=== PATIENT | female | born 1990 | race Caucasian/White ===

== ENCOUNTER 2020-11-15 21:25 | Inpatient (IN) ==
[2020-11-15] MEDS ORDERED: BUTORPHANOL 2 MG/ML VIAL IV PRN (21:40)
[2020-11-15] MEDS ORDERED: MEPERIDINE 50 MG/1 ML VIAL IV PRN (21:40)
[2020-11-15] MEDS ORDERED: ONDANSETRON 4 MG/2 ML VIAL IV PRN (21:40)
[2020-11-15 21:59] LABS: Basophils # 0.1 10*3/uL (0.0-0.2); Basophils % 0.4 % (0.0-0.8); Eosinophils # 0.2 10*3/uL (0.0-0.87); Eosinophils % 1.6 % (0.00-10.9); Hematocrit 36.3 VOL% (35.7-47.0); Hemoglobin 11.9 GM/DL (12.0-16.0); Immature Granulocytes % 0.3 %; Immature Granulocytes Absolute 0.04 #; Lymphocytes # 3.7 10*3/uL (1.4-4.0); Lymphocytes % 26.4 % (21.3-54.2); Mean Corpuscular HGB Conc 32.8 GM/DL (32-36); Mean Platelet Volume 10.9 FL (9.6-12.0); Monocytes % 8.3 % (1.7-12.7); Platelet Count 304 T/CUMM (130-400); Red Blood Count 4.27 MC/CUMM (3.8-5.5); Red Cell Distribution Width 13.2 % (9.3-17.3); White Blood Count 14.2 T/CUMM (4-12)
[2020-11-15 22:18] LABS: Alanine Aminotransferase 13 U/L (13-56); Albumin 2.7 G/DL (3.4-5.0); Alkaline Phosphatase 142 U/L (45-117); Aspartate Amino Transferase 11 U/L (0-37); Bilirubin,Total < 0.39 MG/DL (0.2-1.0); Blood Urea Nitrogen 13 MG/DL (7-18); Calcium 8.4 MG/DL (8.5-10.1); Carbon Dioxide 22 MMOL/L (21-32); Estimated Glom Filtration Rate 113 ML/MIN; Glucose 90 MG/DL (74-106); Osmolality,Calculated 272.8 MOS/KG (273-304); Potassium 3.9 MMOL/L (3.5-5.1); Sodium 137 MMOL/L (136-145); Total Protein 7.2 G/DL (6.4-8.2)
[2020-11-15 22:29] LABS: INR 0.9; PT Patient Result 10.4 SECS (10.5-12.0); Partial Thromboplastin Time 24.1 SECS (23.9-33.8)
[2020-11-15 22:30] LABS: Bilirubin,Direct 0.1 MG/DL (0.0-0.20); Uric Acid 6.2 MG/DL (2.6-6.0)
[2020-11-16] MEDS: LACTATED RINGERS 1,000 ML IV SCH (05:50)
[2020-11-16] MEDS: OXYTOCIN/LR 20 UNIT/1,000 ML BAG IV SCH (05:50)
[2020-11-16] MEDS ORDERED: LACTATED RINGERS 1,000 ML IV ONE (06:33)
[2020-11-16] MEDS ORDERED: ePHEDrine 50 MG/ML VIAL IV PRN (06:33)
[2020-11-16] MEDS ORDERED: FAMOTIDINE 20 MG/2 ML VIAL IV ONE (06:33)
[2020-11-16] MEDS ORDERED: PROMETHAZINE 25 MG/1 ML VIAL IM ONE (06:33)
[2020-11-16] MEDS ORDERED: ONDANSETRON 4 MG/2 ML VIAL IV ONE (06:33)
[2020-11-16] MEDS ORDERED: NALOXONE 0.4 MG/ML VIAL IV PRN (06:33)
[2020-11-16] MEDS ORDERED: hydrOXYzine HCL 25 MG/1 ML VIAL IM PRN (06:33)
[2020-11-16] MEDS ORDERED: diphenhydrAMINE 50 MG/1 ML VIAL IV PRN ×2 (06:33)
[2020-11-16] MEDS ORDERED: CITRIC ACID/SODIUM CITRATE 30 ML UDCUP PO ONE (06:33)
[2020-11-16] MEDS ORDERED: LACTATED RINGERS 1,000 ML IV SCH ×2 (07:00)
[2020-11-16] MEDS: fentaNYL 2 MCG/ROPIV 0.2% EPID 100 ML EPIDURAL SCH (09:32)
[2020-11-16 10:55] LABS: Bilirubin,Urine Negative (Negative); Blood, Urine Negative (Negative); Glucose,Urine (UA) Negative (Negative); Ketones,Urine 5 mg/dL (Negative); Mucus,Urine Occasional /LPF (Occasional); Nitrite,Urine Negative (Negative); Protein,Urine Negative; RBC,Urine <1 /HPF (0-4); Urine Appearance CLEAR (Clear); Urine Color Yellow (Yellow); Urine Specific Gravity 1.013 (1.001-1.035); Urine Urobilinogen < 2.0 EU/DL (0.2-1.0)
[2020-11-16 11:12] LABS: Protein/Creatinine Ratio,Urine 0.2 RATIO
[2020-11-16] MEDS ORDERED: miSOPROStoL 200 MCG TABLET ONE (12:32)
[2020-11-16] MEDS ORDERED: CARBOPROST TROMETHAMINE 250 MCG/ML AMP IM ONE (12:32)
[2020-11-16 14:11] LABS: Cord Arterial Blood HCO3 23.9 MMOL/L
[2020-11-16 14:12] LABS: Cord Venous Blood HCO3 21.4 MMOL/L; Cord Venous Blood PCO2 43.4 MMHG; Cord Venous Blood PO2 28.7
[2020-11-16] MEDS ORDERED: oxyCODONE/ACETAMINOPHEN 5-325 MG TABLET PO PRN ×2 (19:13)
[2020-11-16] MEDS: IBUPROFEN 800 MG TABLET PO PRN (21:15)
[2020-11-16] MEDS: LABETALOL 100 MG TABLET PO SCH (21:15)
[2020-11-16] MEDS ORDERED: DOCUSATE SODIUM 100 MG CAPSULE PO SCH (21:30)
[2020-11-17 05:16] LABS: Basophils # 0.1 10*3/uL (0.0-0.2); Basophils % 0.4 % (0.0-0.8); Eosinophils # 0.2 10*3/uL (0.0-0.87); Eosinophils % 1.6 % (0.00-10.9); Hematocrit 36.6 VOL% (35.7-47.0); Hemoglobin 11.6 GM/DL (12.0-16.0); Immature Granulocytes % 0.4 %; Immature Granulocytes Absolute 0.06 #; Lymphocytes # 4.7 10*3/uL (1.4-4.0); Lymphocytes % 30.8 % (21.3-54.2); Mean Corpuscular HGB Conc 31.7 GM/DL (32-36); Monocytes % 8.1 % (1.7-12.7); Neutrophils % 58.7 % (38.7-73.9); Platelet Count 235 T/CUMM (130-400); Red Blood Count 4.16 MC/CUMM (3.8-5.5); Red Cell Distribution Width 13.2 % (9.3-17.3); White Blood Count 15.2 T/CUMM (4-12)
[2020-11-17] MEDS ORDERED: MEASLES/MUMPS/RUBELLA VACCINE 0.5 ML VIAL SUBCUT ONE (06:34)
[2020-11-17] MEDS ORDERED: DIPH/TET/ACEL PERT BOOSTER VACCINE 0.5 ML VIAL IM ONE (06:34)
[2020-11-17] MEDS ORDERED: BENZOCAINE 20%/MENTHOL 0.5% SPRAY 56 GM CAN TOP PRN (06:34)
[2020-11-17] MEDS ORDERED: HYDROCORTISONE 2.5% RECTAL CREAM 30 GM TUBE TOP PRN (06:34)
[2020-11-17] MEDS ORDERED: BISACODYL 10 MG SUPP RECTAL PRN (06:34)
[2020-11-17] MEDS ORDERED: oxyCODONE/ACETAMINOPHEN 5-325 MG TABLET PO PRN ×2 (06:34)
[2020-11-17] MEDS ORDERED: RHO(D) IMMUNE GLOBULIN 300 MCG SYRINGE IM ONE (06:34)
[2020-11-17] MEDS ORDERED: WITCH HAZEL PADS 100/JAR TOP PRN (06:34)
[2020-11-17] MEDS ORDERED: IBUPROFEN 800 MG TABLET PO PRN (06:34)
[2020-11-17] MEDS ORDERED: OXYTOCIN/LR 20 UNIT/1,000 ML BAG IV ONE (06:34)
[2020-11-17] MEDS ORDERED: ACETAMINOPHEN 325 MG TABLET PO PRN (06:34)
[2020-11-17] MEDS ORDERED: ONDANSETRON 4 MG/2 ML VIAL IV PRN (06:34)
[2020-11-17] MEDS ORDERED: LANOLIN 50% CREAM 0.3 OZ TUBE TOP PRN (06:34)
[2020-11-17] MEDS ORDERED: [UNRECOGNIZED DRUG - OTHER] SCH (07:16)
[2020-11-17] MEDS ORDERED: IRON SCH (07:16)
[2020-11-17] MEDS ORDERED: PNV IRON FOLIC ACID OMEGA3 SCH (07:16)
[2020-11-17] MEDS: DOCUSATE SODIUM 100 MG CAPSULE PO SCH ×2 (08:25→21:08)
[2020-11-17] MEDS: MULTIVITAMIN (PRENATAL) TABLET PO SCH (08:25)
[2020-11-17] MEDS: LABETALOL 100 MG TABLET PO SCH ×3 (08:26→21:08)
[2020-11-17] MEDS ORDERED: LABETALOL 100 MG PO SCH (09:00)
[2020-11-17] MEDS: OXYTOCIN/LR 20 UNIT/1,000 ML BAG IV SCH (13:00)
[2020-11-17] MEDS: fentaNYL 2 MCG/ROPIV 0.2% EPID 100 ML EPIDURAL SCH ×2 (13:00→13:04)
[2020-11-17] MEDS: LACTATED RINGERS 1,000 ML IV SCH ×2 (13:01→13:02)
[2020-11-17] MEDS: IBUPROFEN 800 MG TABLET PO PRN (17:17)
[2020-11-18 05:42] LABS: Basophils # 0.1 10*3/uL (0.0-0.2); Basophils % 0.6 % (0.0-0.8); Eosinophils # 0.6 10*3/uL (0.0-0.87); Hematocrit 36.4 VOL% (35.7-47.0); Hemoglobin 11.6 GM/DL (12.0-16.0); Immature Granulocytes % 0.4 %; Immature Granulocytes Absolute 0.05 #; Lymphocytes # 5.4 10*3/uL (1.4-4.0); Lymphocytes % 42.4 % (21.3-54.2); Mean Corpuscular HGB Conc 31.9 GM/DL (32-36); Mean Corpuscular Volume 88.8 FL (87-102); Monocytes % 7.2 % (1.7-12.7); Neutrophils % 44.4 % (38.7-73.9); Platelet Count 279 T/CUMM (130-400); Red Cell Distribution Width 13.5 % (9.3-17.3); White Blood Count 12.7 T/CUMM (4-12)
[2020-11-18] MEDS: DOCUSATE SODIUM 100 MG CAPSULE PO SCH (10:05)
[2020-11-18] MEDS: MULTIVITAMIN (PRENATAL) TABLET PO SCH (10:05)
[2020-11-18] MEDS: LABETALOL 100 MG TABLET PO SCH (10:05)
[2020-11-18 14:51] VITALS: BP 126/80
== END 2020-11-18 12:38 | disposition home or self-care (01) | DRG 807 ==
LOC: N.LDOUT 21:25 → N.LD 21:28 → N.OB 11-16 16:15
PROVIDERS: ADMIT Specialist; ATTEND Specialist